=== PATIENT | male | born 1975 | race Caucasian/White ===

== ENCOUNTER 2016-11-30 03:22 | Emergency (ER) | payer OTHER ==
[2016-11-30 06:08] VITALS: BP 120/76
== END 2016-11-30 06:08 | disposition home or self-care (01) ==
LOC: ED 03:22
DX: S20.212A Contusion of left front wall of thorax, initial encounter (principal); S80.02XA Contusion of left knee, initial encounter; W20.8XXA Other cause of strike by thrown, projected or falling object, initial encounter; Y93.89 Activity, other specified; Y99.8 Other external cause status; Y92.89 Other specified places as the place of occurrence of the external cause
CPT/HCPCS: Q0092